=== PATIENT | female | born 1965 | race Caucasian/White ===

== ENCOUNTER → 2016-10-10 | Outpatient (CLI) | payer OTHER ==
[~2016-10-10] MED LIST: CELEBREX PO; CYCL5TAB PO; GABAPENTIN PO; HYDR-3144 PO
[2016-10-10 15:17] LABS: ASPARTATE AMINO TRANSFERASE 21 U/L (15-37); BLOOD UREA NITROGEN 11 mg/dL (7-18)
[2016-10-10 15:56] LABS: HIV 1&2 ANTIBODY SCREEN Nonreactive (Nonreactive); HIV-1 p24 ANTIGEN Nonreactive (Nonreactive)
[2016-10-11 09:27] LABS: HEPATITIS C VIRUS ANTIBODY Nonreactive (Nonreactive)
== END | disposition home or self-care (01) ==
LOC: STAR 14:02
PROVIDERS: ATTEND Orthopaedic Surgery Orthopaedic Surgery of the Spine
DX: Z01.818 Encounter for other preprocedural examination (principal); M54.12 Radiculopathy, cervical region; M50.20 Other cervical disc displacement, unspecified cervical region
CPT/HCPCS: 36415; 71020; 80053; 80074; 81003; 85025; 85610; 85651; 85730; 86703; 87899; 93005; G0435

== ENCOUNTER 2016-10-14 05:22 | Inpatient (IN) | payer OTHER ==
[2016-10-10 14:33] VITALS: BP 111/74
[~2016-10-14] VITALS: Ht 162.6 cm; Wt 69.2 kg
[~2016-10-14 05:22] MED LIST changes: -CELEBREX PO; -GABAPENTIN PO
[2016-10-14] MEDS ORDERED: LIDOCAINE 1%, 2ML SQ PRN (06:00)
[2016-10-14] MEDS ORDERED: LACTATED RINGERS 1,000 ML IV SCH (06:00)
[2016-10-14] MEDS ORDERED: GABAPENTIN PO (06:02)
[2016-10-14] MEDS ORDERED: CELEBREX PO (06:02)
[2016-10-14 06:06] LABS: HCG UR OBC PASS
[2016-10-14] MEDS ORDERED: BUPIVACAINE/PF-EPI 0.5% 1:200K ONE (06:44)
[2016-10-14] MEDS ORDERED: THROMBIN 5,000 UNIT VIAL TP ONE (06:44)
[2016-10-14] MEDS ORDERED: BACITRACIN 50,000 UNIT ONE (06:44)
[2016-10-14] MEDS ORDERED: BUPIVACAINE/PF-EPI 0.25% 1:200K ONE (06:44)
[2016-10-14] MEDS ORDERED: LIDOCAINE 0.5%-EPI 1:200K, 50ML ONE (06:44)
[2016-10-14] MEDS ORDERED: MIDAZOLAM 1 MG/ML, 2ML ONE (06:58)
[2016-10-14] MEDS ORDERED: FENTANYL PF 250 MCG/5ML ONE ×2 (06:58→09:07)
[2016-10-14] MEDS ORDERED: BUPIVACAINE/PF 0.25% ONE (07:21)
[2016-10-14] MEDS ORDERED: LABETALOL 5MG/ML, 20ML IV PRN ×3 (07:30→15:30)
[2016-10-14] MEDS ORDERED: ACETAMINOPHEN 325 MG TABLET PO PRN (07:30)
[2016-10-14] MEDS ORDERED: hydrALAzine 20 MG/ML, 1ML IV PRN (07:30)
[2016-10-14] MEDS ORDERED: OXYcodone 5 MG/5 ML ORAL.SOL UDC PO PRN (07:30)
[2016-10-14] MEDS ORDERED: PROMETHAZINE 25 MG/ML, 1ML IV PRN (07:30)
[2016-10-14] MEDS ORDERED: ONDANSETRON 2MG/ML, 2ML IVPush PRN (07:30)
[2016-10-14] MEDS ORDERED: MEPERIDINE/PF 25MG/0.5ML IVPush PRN (07:30)
[2016-10-14] MEDS ORDERED: METOCLOPRAMIDE 5 MG/ML, 2ML IV PRN (07:30)
[2016-10-14] MEDS ORDERED: FENTANYL PF 100 MCG/2ML ONE ×2 (10:57→12:01)
[2016-10-14] MEDS ORDERED: ACETAMINOPHEN 650 MG/20.3 ML UDC ONE (10:57)
[2016-10-14] MEDS ORDERED: HYDROmorphone 1 MG/ML, 1ML ONE ×2 (10:57→11:50)
[2016-10-14] MEDS ORDERED: OXYcodone 5 MG/5 ML ORAL.SOL UDC ONE (10:58)
[2016-10-14] MEDS: FENTANYL PF 100 MCG/2ML IV PRN ×4 (10:59→12:50)
[2016-10-14] MEDS: HYDROmorphone 1 MG/ML, 1ML IV PRN ×4 (11:15→12:34)
[2016-10-14] MEDS ORDERED: DIAZEPAM 5 MG/ML, 2ML ONE (11:17)
[2016-10-14] MEDS: DIAZEPAM 5 MG/ML, 2ML IVPush PRN ×2 (11:30→12:03)
[2016-10-14] MEDS ORDERED: PROMETHAZINE 25 MG/ML, 1ML IM PRN (13:30)
[2016-10-14] MEDS ORDERED: BISACODYL 10 MG SUPP PR PRN (13:30)
[2016-10-14] MEDS ORDERED: DIPHENHYDRAMINE 50 MG/ML, 1ML IM PRN (13:30)
[2016-10-14] MEDS ORDERED: MAGNESIUM HYDROXIDE 8%, 30ML UDC PO PRN (13:30)
[2016-10-14] MEDS ORDERED: DIPHENHYDRAMINE 50 MG/ML, 1ML IVPush PRN (13:30)
[2016-10-14] MEDS ORDERED: PROMETHAZINE 25 MG SUPP PR PRN (13:30)
[2016-10-14] MEDS ORDERED: DIAZEPAM 5 MG/ML, 2ML IV PRN (13:30)
[2016-10-14] MEDS ORDERED: DIPHENHYDRAMINE 50 MG CAPSULE PO PRN (13:30)
[2016-10-14] MEDS ORDERED: OXYcodone IR 5MG TABLET PO PRN (13:30)
[2016-10-14] MEDS: D5%-LACTATED RINGERS 1,000 ML IV SCH ×2 (13:30→19:04)
[2016-10-14] MEDS: DEXAMETHASONE 4 MG/ML, 1ML IV SCH ×2 (13:57→20:08)
[2016-10-14] MEDS: HYDROmorphone 1 MG/ML, 1ML IM PRN ×3 (13:57→22:43)
[2016-10-14] MEDS: OXYcodone IR 5MG TABLET PO PRN ×2 (15:25→20:21)
[2016-10-14] MEDS ORDERED: SUCCINYLCHOLINE 20 MG/ML, 10ML ONE (15:54)
[2016-10-14] MEDS ORDERED: PROPOFOL 10 MG/ML, 50ML ONE (15:54)
[2016-10-14] MEDS ORDERED: ONDANSETRON 2MG/ML, 2ML ONE (15:54)
[2016-10-14] MEDS ORDERED: DEXAMETHASONE 4 MG/ML, 5ML ONE (15:54)
[2016-10-14] MEDS ORDERED: CEFAZOLIN 1,000 MG ONE (15:54)
[2016-10-14] MEDS ORDERED: ROCURONIUM 10 MG/ML ONE (15:54)
[2016-10-14] MEDS ORDERED: PROPOFOL 10 MG/ML, 20ML ONE (15:54)
[2016-10-14] MEDS: CEFAZOLIN PMX 1GM/50ML 50 ML IVPB SCH (16:37)
[2016-10-14] MEDS: ACETAMINOPHEN 500 MG TABLET PO SCH ×2 (16:37→20:21)
[2016-10-14] MEDS: DIAZEPAM 5 MG TABLET PO PRN ×2 (16:40→22:44)
[2016-10-14 20:47] VITALS: BP 111/73
[2016-10-15 00:17] VITALS: BP 107/70
[2016-10-15] MEDS: CEFAZOLIN PMX 1GM/50ML 50 ML IVPB SCH (00:37)
[2016-10-15] MEDS: OXYcodone IR 5MG TABLET PO PRN ×6 (00:37→21:35)
[2016-10-15] MEDS: HYDROmorphone 1 MG/ML, 1ML IM PRN (02:21)
[2016-10-15] MEDS: DEXAMETHASONE 4 MG/ML, 1ML IV SCH (02:30)
[2016-10-15] MEDS: D5%-LACTATED RINGERS 1,000 ML IV SCH ×3 (03:47→21:35)
[2016-10-15 04:17] VITALS: BP 105/67
[2016-10-15] MEDS: DIAZEPAM 5 MG TABLET PO PRN ×3 (04:59→17:13)
[2016-10-15] MEDS: SENNA/DOCUSATE TABLET PO SCH (08:32)
[2016-10-15 08:33] VITALS: BP 141/85
[2016-10-15] MEDS: ACETAMINOPHEN 500 MG TABLET PO SCH ×3 (08:33→21:35)
[2016-10-15 14:13] VITALS: BP 133/79
[2016-10-15 20:33] VITALS: BP 109/68
[2016-10-15] MEDS ORDERED: ZOLPIDEM 5MG TABLET PO PRN (21:00)
[2016-10-16 01:02] VITALS: BP 125/83
[2016-10-16] MEDS: DIAZEPAM 5 MG TABLET PO PRN ×3 (01:02→13:37)
[2016-10-16] MEDS: OXYcodone IR 5MG TABLET PO PRN ×3 (02:52→11:20)
[2016-10-16] MEDS: D5%-LACTATED RINGERS 1,000 ML IV SCH ×2 (05:30→13:30)
[2016-10-16] MEDS: SENNA/DOCUSATE TABLET PO SCH (08:36)
[2016-10-16] MEDS: ACETAMINOPHEN 500 MG TABLET PO SCH (08:39)
[2016-10-16 08:40] VITALS: BP 130/83
[2016-10-16 13:22] VITALS: BP 128/87
== END 2016-10-16 14:03 | disposition home or self-care (01) | DRG 473 ==
LOC: OUT 05:22 → 4NOR 13:10 → OUT 13:15 → 4NOR 13:15 → DCLOUNGE 10-16 13:47
PROVIDERS: ADMIT Orthopaedic Surgery Orthopaedic Surgery of the Spine; ATTEND Orthopaedic Surgery Orthopaedic Surgery of the Spine
PROC: 0RB30ZZ Excision of Cervical Vertebral Disc, Open Approach (ICD-10-PCS; 2016-10-14)
PROC: 4A11X4G Monitoring of Peripheral Nervous Electrical Activity, Intraoperative, External Approach (ICD-10-PCS; 2016-10-14)
PROC: 0RG20A0 Fusion of 2 or more Cervical Vertebral Joints with Interbody Fusion Device, Anterior Approach, Anterior Column, Open Approach (ICD-10-PCS; principal; 2016-10-14 07:30)
DX: M50.122 Cervical disc disorder at C5-C6 level with radiculopathy (principal); M40.202 Unspecified kyphosis, cervical region; M47.22 Other spondylosis with radiculopathy, cervical region; M46.1 Sacroiliitis, not elsewhere classified
CPT/HCPCS: 36415; 72040; 81025; 86850; 86900; J0690; J1100; J1170; J2250; J2405; J2704; J3010; J3360; J3490; J0330; J7120; J7121

== ENCOUNTER 2016-11-29 10:03 | Emergency (ER) | payer OTHER ==
[~2016-11-29] VITALS: Ht 170.2 cm; Wt 64.0 kg
[~2016-11-29 10:03] MED LIST changes: +CELEBREX PO; +GABAPENTIN PO
[2016-11-29] MEDS ORDERED: SODIUM CHLORIDE FLUSH 10ML SYR IVF ONE (10:30)
[2016-11-29 11:03] LABS: BLOOD UREA NITROGEN 9 mg/dL (7-18)
[2016-11-29] MEDS ORDERED: LORazepam 2 MG/ML, 1ML ONE (12:18)
[2016-11-29] MEDS ORDERED: LORazepam 2 MG/ML, 1ML IVPush ONE (12:30)
[2016-11-29] MEDS ORDERED: GADOBUTROL 7.5 MMOL/7.5 ML PFS ONE (12:42)
[2016-11-29 14:21] VITALS: BP 134/80
== END 2016-11-29 15:13 | disposition home or self-care (01) ==
LOC: ED 14:16
DX: F41.1 Generalized anxiety disorder (principal); K22.4 Dyskinesia of esophagus
CPT/HCPCS: 36415; 72156; 74220; 80048; 82040; 85025; 85610; 96374; 99285; A9585; J2060